=== PATIENT | female | born 1935 | race Caucasian/White ===

== ENCOUNTER 2017-01-29 10:30 | Emergency (ER) | payer OTHER, MEDICAID ==
[2017-01-29] MEDS ORDERED: Sodium Chloride 0.9% 1,000 ML IV ONE (13:23)
[2017-01-29] MEDS ORDERED: Sodium Chloride 0.9% 1,000 ML ONE (13:57)
[2017-01-29 13:58] LABS: BASO % 0.3 % (0.0-2.0); EOS # 0.1 K/uL (0.0-0.7); EOS % 0.7 % (0.0-4.0); HEMATOCRIT 41.6 % (34.0-47.0); LYMPH # 1.1 K/uL (1.0-4.3); LYMPH % 12.3 % (20.0-40.0); MEAN CELL VOLUME 83.1 fL (81.0-99.0); MEAN CORPUSCULAR HGB CONC 32.5 g/dL (33.0-37.0); MEAN PLATELET VOLUME 8.7 fL (7.2-11.7); MONO # 1.4 K/uL (0.0-0.8); MONO % 15.2 % (0.0-10.0); RED CELL DISTRIBUTION WIDTH 14.8 % (11.5-14.5)
[2017-01-29 14:06] LABS: CHLORIDE 93 mmol/L (98-107); POTASSIUM 3.9 mmol/L (3.6-5.2); SODIUM 138 mmol/L (132-148)
[2017-01-29 14:08] LABS: ALKALINE PHOSPHATASE 150 U/L (38-126); ALT/SGPT 80 U/L (9-52); AST/SGOT 51 U/L (14-36); BLOOD UREA NITROGEN 16 mg/dL (7-17); CARBON DIOXIDE 31 mmol/L (22-30); GFR AFRICAN-AMERICAN > 60; GLUCOSE,RANDOM 109 mg/dL (65-105); TOTAL PROTEIN 7.8 g/dL (6.3-8.3)
[2017-01-29 14:09] LABS: CALCIUM 8.7 mg/dl (8.6-10.4)
--- NOTE | 2017-01-29 14:18 | RAD ---
HISTORY: Cough COMPARISON: None available. TECHNIQUE: Chest PA and lateral FINDINGS: LUNGS: Small bilateral pleural effusions and bibasilar infiltrates or atelectasis. No definite pneumothorax. Hyperinflation may be seen in the setting of COPD. Please note that chest x-ray has limited sensitivity for the detection of pulmonary masses. CARDIOVASCULAR: Cardiomegaly. Ectatic aorta. OSSEOUS STRUCTURES: Degenerative changes of the spine. Confluent anterior osteophyte formation. VISUALIZED UPPER ABDOMEN: Unremarkable. OTHER FINDINGS: None. IMPRESSION: Small bilateral pleural effusions and bibasilar infiltrates or atelectasis. Hyperinflation may be seen in the setting of COPD.
[2017-01-29 14:32] LABS: RBC URINE 12 /hpf (0-3); URINE BILIRUBIN NEGATIVE (NEGATIVE); URINE BLOOD TRACE (NEGATIVE); URINE COLOR Amber (YELLOW); URINE GLUCOSE (UA) NORMAL (Normal); URINE KETONE NEGATIVE (NEGATIVE); URINE LEUKOCYTE ESTERASE 3+ Leu/uL (Negative); URINE PROTEIN 1+ mg/dL (NEGATIVE); WBC URINE 54 /hpf (0-5)
--- NOTE | 2017-01-29 14:36 | C.PDOC ---
Time Seen by Provider: 01/29/17 13:07 Chief Complaint (Nursing): Flu-like Symptoms History Per: Patient, Family Onset/Duration Of Symptoms: Days (4) Current Symptoms Are (Timing): Still Present Associated Symptoms: Sore Throat, Cough, Myalgias, Nasal Congestion Severity: Moderate Additional History Per: Prior Records Past Medical History Reviewed: Historical Data, Nursing Documentation, Vital Signs Vital Signs: Last Vital Signs Temp 98.7 F 01/29/17 11:15 Pulse 98 H 01/29/17 11:15 Resp 20 01/29/17 11:15 BP 117/76 01/29/17 11:15 Pulse Ox 99 01/29/17 11:15 - Medical History PMH: HTN Surgical History: Appendectomy, Cholecystectomy Other Surgeries: Hysterectomy Family History: States: Unknown Family Hx - Social History Hx Tobacco Use: No Hx Alcohol Use: No Hx Substance Use: No - Immunization History Hx Tetanus Toxoid Vaccination: No Hx Influenza Vaccination: No Hx Pneumococcal Vaccination: No Review Of Systems Except As Marked, All Systems Reviewed And Found Negative. Constitutional: Negative for: Fever Cardiovascular: Negative for: Chest Pain Respiratory: Positive for: Cough. Negative for: Shortness of Breath, Hemoptysis Gastrointestinal: Negative for: Abdominal Pain Genitourinary: Negative for: Dysuria Musculoskeletal: Negative for: Neck Pain, Back Pain Skin: Negative for: Rash Neurological: Negative for: Weakness, Numbness, Seizures, Altered Mental Status Physical Exam - Physical Exam Appears: Non-toxic, No Acute Distress Skin: Normal Color, Warm, Dry, No Rash Head: Atraumatic, Normacephalic Eye(s): bilateral: PERRL, EOMI Oral Mucosa: Moist Throat: Erythema, No Exudate, No Drooling, No Mass Neck: Normal ROM, Supple Cardiovascular: Rhythm Regular Respiratory: Normal Breath Sounds, No Accessory Muscle Use Gastrointestinal/Abdominal: Soft, No Tenderness Back: No CVA Tenderness Extremity: Normal ROM Neurological/Psych: Oriented x3, Normal Motor, Normal Sensation ED Course And Treatment - Laboratory Results Result Diagrams: 01/29/17 13:23 01/29/17 13:55 Interpretation Of Abnormal: Possible UTI O2 Sat by Pulse Oximetry: 99 Pulse Ox Interpretation: Normal - Radiology CXR: Viewed By Me, Read By Radiologist CXR Interpretation: Yes: COPD (?), Other (bibasilar atelectasis) Progress Note: Pt feels much better and wants to go home. Reassessment Condition: Improved Progress - Interventions Interventions:: Observation, Intravenous fluid - Medications Administered Oral: Acetaminophen - Data Reviewed Data Reviewed: Lab, Diagnostic imaging, Old records - Patient Status Patient status: Partially improved - Continuity of Care Discussed patient case with:: Patient, Family-HIPPA compliant, ED Nurse - Patient Plan Patient Plan: Discharge, F/U with PCP, Continue present meds Disposition Counseled Patient/Family Regarding: Studies Performed, Diagnosis, Need For Followup, Rx Given - Disposition Disposition: HOME/ ROUTINE Disposition Time: 14:40 Condition: IMPROVED Additional Instructions: Follow up with your doctor within 1-2 days. Return to the ER if you develop fever, vomiting, shortness of breath, lethargy, worsening of symptoms or if you have any other concerns. Prescriptions: Benzonatate 200 mg PO TID PRN #15 capsule PRN Reason: Cough Levofloxacin [Levaquin] 750 mg PO DAILY #5 tablet Instructions: Acute Bronchitis (ED) Print Language: GUINEAN - Clinical Impression Clinical Impression: Influenza-like illness, UTI (urinary tract infection)
[2017-01-29 15:12] VITALS: BP 108/68; PULSE 70; RESP 18; TEMP 98.2; O2SAT 98
== END 2017-01-29 15:25 | disposition home or self-care (01) ==
LOC: C.ER 10:30
DX: J11.1 Influenza due to unidentified influenza virus with other respiratory manifestations (principal); N39.0 Urinary tract infection, site not specified
CPT/HCPCS: 71020; 80053; 81001; 82550; 85025; 87804; 96360; 99284; J7040